=== PATIENT | male | born 1935 | race Caucasian/White ===

== ENCOUNTER 2018-03-27 12:19 | Emergency (ER) | payer OTHER ==
[~2018-03-27] VITALS: Ht 188 cm; Wt 104.3 kg
[~2018-03-27 12:19] MED LIST: ATOR10 PO; CENTRUM COMPLE1 EACH PO; CEPH500 PO; Coumadin5 MG PO; DILT60ER PO; DOCU100 PO; Keflex500 MG PO; LEVSOD50 PO; METO50ER PO; OMEP40CA12 PO; OXYB5 PO; POLY500 PO; PRAZ1 PO; PRAZ2 PO; RAMI5 PO; Roxicodone5 MG PO; Zofran Odt4 MG SL
[2018-03-27 13:27] LABS: BASOPHILS ABSOLUTE AUTO 0.05 K/mm3 (0.00-0.23); BASOPHILS PERCENT AUTO 1 % (0-2); EOSINOPHILS ABSOLUTE AUTO 0.04 K/mm3 (0.00-0.68); EOSINOPHILS PERCENT AUTO 1 % (0-6); Hematocrit 44.2 % (37.0-53.0); Hemoglobin 15.2 g/dL (13.5-17.5); IMMATURE GRAN ABSOLUTE AUTO 0.03 K/mm3 (0.00-0.10); IMMATURE GRAN PERCENT AUTO 0 % (0-1); LYMPHOCYTES PERCENT AUTO 20 % (21-46); MONOCYTES ABSOLUTE AUTO 0.56 K/mm3 (0.16-1.47); MONOCYTES PERCENT AUTO 8 % (4-13); Mean Corpuscular HGB 32.6 pg (26.0-34.0); Mean Corpuscular HGB Conc 34.4 g/dL (31.5-36.5); Mean Corpuscular Volume 95 fL (80-100); Mean Platelet Volume 10.4 fL (9.1-12.4); NEUTROPHILS ABSOLUTE AUTO 5.26 K/mm3 (1.96-9.15); NEUTROPHILS PERCENT AUTO 71 % (41-73); Platelet Count 155 K/mm3 (150-400); RDW Coefficient Variation 12.9 % (11.7-14.2); RDW Standard Deviation 44.8 fL (35.1-46.3); Red Blood Cell Count 4.66 M/mm3 (4.30-5.90); White Blood Cell Count 7.44 K/mm3 (4.00-11.30)
[2018-03-27 13:40] LABS: International Normalized Ratio 2.14; Prothrombin Time Results 21.1 Sec (9.7-11.5)
[2018-03-27 13:52] LABS: Alanine Aminotransfer (ALT/SGP 26 U/L (12-78); Albumin, Blood 3.3 g/dL (3.4-5.0); Albumin/Globulin Ratio 0.8 (0.8-1.8); Alk Phos 65 U/L (50-136); Anion Gap 7 mmol/L (6-16); Aspartate Aminotrans (AST/SGOT 20 U/L (12-37); Blood Urea Nitrogen 22 mg/dL (8-24); CO2, Blood 25 mmol/L (21-32); Calcium, Blood 8.7 mg/dL (8.5-10.1); Chloride, Blood 105 mmol/L (98-108); Globulin, Blood 4.3 g/dL (2.2-4.0); Glomerular Filtration Rate >60 (60-); Glucose, Blood 178 mg/dL (70-99); Potassium, Blood 4.3 mmol/L (3.5-5.5); Sodium, Blood 137 mmol/L (136-145); Total Protein, Blood 7.6 g/dL (6.4-8.2)
[2018-03-27 15:21] LABS: Source, Urine Clean Catch
[2018-03-27 15:24] LABS: Appearance, Urine Clear (Clear); Bilirubin, Urine Neg (Neg); Blood, Urine 1+ (Neg); Color, Urine Yellow (P-Yellow); Glucose Qualitative, Urine Neg (Neg); Ketones, Urine Neg (Neg); Leukocyte Esterase, Urine 1+ (Neg); Nitrite, Urine Neg (Neg); Protein, Urine Neg (Neg); Specific Gravity, Urine 1.015 (1.003-1.022); Urobilinogen, Urine NORM (Normal)
[2018-03-27 15:32] LABS: Bacteria Not Seen /hpf; Squamous Epithelial Cells Not Seen /hpf (Few)
== END 2018-03-27 17:33 | disposition home or self-care (01) ==
LOC: ER 12:19
PROVIDERS: Physician Assistant
DX: R51 Headache (principal); M50.321 Other cervical disc degeneration at C4-C5 level; M50.322 Other cervical disc degeneration at C5-C6 level; D68.9 Coagulation defect, unspecified; Z79.899 Other long term (current) drug therapy; Z79.01 Long term (current) use of anticoagulants; I10 Essential (primary) hypertension
CPT/HCPCS: 36415; 70450; 72040; 80053; 81001; 85025; 85610; 85730; 87086; 93005; 93010; 96361; 96374; 96375; 99285-25; J1885; J3010; J7030

== ENCOUNTER 2018-08-19 06:57 | Observation (INO) | payer OTHER ==
[~2018-08-19] VITALS: Ht 188 cm; Wt 104.4 kg
[~2018-08-19 06:57] MED LIST changes: -OMEP40CA12 PO; +OMEPRAZOLE MAGN20 MG PO; -PRAZ1 PO
[2018-08-19 10:44] LABS: BASOPHILS ABSOLUTE AUTO 0.04 K/mm3 (0.00-0.23); BASOPHILS PERCENT AUTO 0 % (0-2); EOSINOPHILS ABSOLUTE AUTO 0.04 K/mm3 (0.00-0.68); EOSINOPHILS PERCENT AUTO 0 % (0-6); Hematocrit 43.1 % (37.0-53.0); Hemoglobin 14.5 g/dL (13.5-17.5); IMMATURE GRAN ABSOLUTE AUTO 0.03 K/mm3 (0.00-0.10); IMMATURE GRAN PERCENT AUTO 0 % (0-1); LYMPHOCYTES ABSOLUTE AUTO 2.18 K/mm3 (0.84-5.20); LYMPHOCYTES PERCENT AUTO 17 % (21-46); MONOCYTES PERCENT AUTO 6 % (4-13); Mean Corpuscular HGB 32.8 pg (26.0-34.0); Mean Corpuscular HGB Conc 33.6 g/dL (31.5-36.5); Mean Corpuscular Volume 98 fL (80-100); Mean Platelet Volume 9.9 fL (9.1-12.4); NEUTROPHILS PERCENT AUTO 76 % (41-73); Platelet Count 145 K/mm3 (150-400); RDW Standard Deviation 46.3 fL (35.1-46.3); Red Blood Cell Count 4.42 M/mm3 (4.30-5.90); White Blood Cell Count 12.99 K/mm3 (4.00-11.30)
[2018-08-19 11:03] LABS: Alanine Aminotransfer (ALT/SGP 19 U/L (12-78); Albumin, Blood 3.1 g/dL (3.4-5.0); Albumin/Globulin Ratio 0.8 (0.8-1.8); Alk Phos 63 U/L (50-136); Anion Gap 6 mmol/L (6-16); Aspartate Aminotrans (AST/SGOT 21 U/L (12-37); Bilirubin, Total 0.7 mg/dL (0.1-1.0); Blood Urea Nitrogen 18 mg/dL (8-24); Bun/Creatinine Ratio 17.1 (12.0-20.0); CO2, Blood 25 mmol/L (21-32); Calcium, Blood 8.1 mg/dL (8.5-10.1); Chloride, Blood 109 mmol/L (98-108); Creatinine, Blood 1.05 mg/dL (0.60-1.20); Globulin, Blood 3.9 g/dL (2.2-4.0); Glomerular Filtration Rate >60 (60-); Glucose, Blood 149 mg/dL (70-99); Potassium, Blood 4.4 mmol/L (3.5-5.5); Sodium, Blood 140 mmol/L (136-145)
[2018-08-19] MEDS ORDERED: METF500C PO (15:17)
[2018-08-19] MEDS ORDERED: RAMI5 PO (15:18)
--- NOTE | 2018-08-19 15:34 | NUR ---
ADMIT NOTE RECEIVED REPORT FROM PENNIE STARKS RN IN ED. PT TO ROOM VIA GURNEY AT 1355, 4 PERSON TRANSFER ASSIST WITH SLIDER SHEET. PT ORIEINTED TO ROOM AND CALL LIGHT. DAUGHTER AT BEDSIDE AT 1530, REPORTS THAT THE PT ATTEMPTED TO GET OUT OF BED WITH HIS CANE THIS MORNING AND FELL TO THE FLOOR. DAUGHTER STATES PT AMBULATES AT BASELINE WITH A CANE AND IS ABLE TO COMPLETE HYGENINE ADLS ON HIS OWN. PT EDUCATED ON HIGH FALL RISK AND NOTIFIED OF BED ALARM PLACEMENT. PT ALERT AND ORIENTED TO SELF, FAMILY AND SURROUNDINGS. PT REPORTS PAIN, "OK" AT THIS TIME. PT BREATHING EVEN AND UNLABORED, >90% ON RA AND LS CLEAR. RIGHT LEG PAINFUL WITH MOVEMENT, PERIPHERAL PULSE WEAK BUT NOTED. PT HAS A HX OF CVA WITH RIGHT SIDE GROSS MOVEMENT, SLIGHT IN ARM, DAUGHTER REPORTS THAT THE PT DRAGS RIGHT FOOT WHILE WALKING. ELEVATED BP, 173/81 NOTED. WILL CONTINUE TO MONITOR.
[2018-08-19 17:05] LABS: International Normalized Ratio 2.88; Prothrombin Time Results 27.7 Sec (9.7-11.5)
--- NOTE | 2018-08-19 19:27 | NUR ---
DR PETIT AT BEDSIDE APPLYING SPLINT TO R LEG. DIANNA RANDHAWA AND THIS RN ASSISTED WITH TRACTION AND APPLICATION. PT TOLERATED WELL.
--- NOTE | 2018-08-19 20:14 | NUR ---
SHIFT SUMMARY PT A&O TO SELF, EVENT, FAMILY AND SURROUNDINGS. PT CALM AND COOPERATIVE WITH CARE. PT RESTING IN BED, ASSIST WITH TURNING AND CHANGING. PT REPORTS PAIN IN RIGHT LEG, MEDICATED PER EMAR. RIGHT THIGH IS WARM AND FIRM TO TOUCH. R FOOT PULSE PALPABLE BUT WEAK. PT DENIES SOB, BREATHING EVEN AND UNLABORED. PT DENIES N/V, APPEARS TO HAVE GOOD APPETITE WITH DINNER. PROVIDER CONSULT CALLED IN TO DR PETIT, DR PETIT AT BEDSIDE AT SHIFT CHANGE, THIS RN AND EDIS KING ASSIST WITH SPLINTING AND HOLD TRACTION WITH DR PETIT. BP ELEVATED, HYDRALAZINE ADMINISTED. OTHER VSS. NO OTHER ACUTE CHAGNES NOTED DURING SHIFT. REPORT GIVEN TO ONCOMING RN.
[2018-08-20 05:09] LABS: Hematocrit 39.2 % (37.0-53.0); Hemoglobin 13.2 g/dL (13.5-17.5); Mean Corpuscular HGB 32.2 pg (26.0-34.0); Mean Corpuscular HGB Conc 33.7 g/dL (31.5-36.5); Mean Corpuscular Volume 96 fL (80-100); Mean Platelet Volume 10.5 fL (9.1-12.4); Platelet Count 148 K/mm3 (150-400); RDW Coefficient Variation 13.1 % (11.7-14.2); RDW Standard Deviation 46.5 fL (35.1-46.3); White Blood Cell Count 12.67 K/mm3 (4.00-11.30)
[2018-08-20 05:21] LABS: International Normalized Ratio 2.33
[2018-08-20 05:36] LABS: Prothrombin Time Results 22.9 Sec (9.7-11.5)
[2018-08-20 06:20] LABS: Anion Gap 8 mmol/L (6-16); Blood Urea Nitrogen 16 mg/dL (8-24); CO2, Blood 23 mmol/L (21-32); Chloride, Blood 108 mmol/L (98-108); Glucose, Blood 178 mg/dL (70-99); Sodium, Blood 139 mmol/L (136-145)
--- NOTE | 2018-08-20 06:35 | NUR ---
SHIFT SUMMARY: PT R LEG IN SPLINT PLACED BY DR PETIT WITH ASSISTANCE FROM THIS RN AND EDIS BUSTAMANTE. PEDAL PULSES PALPABLE TO RLE. PT TREATED FOR PAIN 2X WITH 1MG DILAUDID, MOSTLY BEFORE MOVEMENT. PT A&O X 1, SELF ONLY. PLEASANTLY CONFUSED, UNABLE TO ANSWER MOST Q'S AND USUALLY JUST GIGGLES WHEN COVERSATING. R SIDE FLACCID, VERY LIMITED MOVEMENT. NS RUNNING @ 60 ML/HR. NPO SINCE MIDNIGHT FOR IMPENDING PROCEDURE c DR PETIT. NO OTHER ACUTE CHANGES TO REPORT. WILL CONT TO PROVIDE CARE UNTIL PRESUMED BY ONCOMING RN.
[2018-08-20 06:53] LABS: Bun/Creatinine Ratio 17.6 (12.0-20.0); Creatinine, Blood 0.91 mg/dL (0.60-1.20); Glomerular Filtration Rate >60 (60-)
[2018-08-20 09:15] LABS: Source, Urine Clean Catch
[2018-08-20 09:19] LABS: Bilirubin, Urine Neg (Neg); Blood, Urine 3+ (Neg); Glucose Qualitative, Urine 2+ (Neg); Ketones, Urine 1+ (Neg); Leukocyte Esterase, Urine 3+ (Neg); Nitrite, Urine Neg (Neg); Protein, Urine 2+ (Neg); Specific Gravity, Urine 1.025 (1.003-1.022); Urobilinogen, Urine 1+ (Normal)
[2018-08-20 10:08] LABS: Appearance, Urine Hazy (Clear); Color, Urine Yellow (P-Yellow)
[2018-08-20 10:25] LABS: White Blood Cells, Urine TNTC /hpf (0-5)
[2018-08-20 10:27] LABS: Squamous Epithelial Cells Few /hpf (Few)
[2018-08-20 10:34] LABS: Bacteria Few /hpf
--- NOTE | 2018-08-20 13:34 | NUR ---
Pt consented to nursing program director Odilia Light to assess pt 08/21/18. Pt daughter also aware.
--- NOTE | 2018-08-20 15:54 | NUR ---
Patient was lying on his bed and alert when I entered the room. I introduced myself to patient and patient's daughter, Anette and they welcomed me. Pat explained that patient had a stroke at age 43 and has been a fighter ever since, she also explained that he recently received some pain medication and that is why he is extra happy at the moment. I listened to a brief family history, I reinforced helpful attitudes and practices, explored their belief system and provided prayer. Patient and daughter responded well to all interventions and thanked me for the visit.
--- NOTE | 2018-08-21 07:49 | NUR ---
NOC SHIFT SUMMARY THIS PT HAS RAMIRO PLEASANT AND COOPERATIVE WITH CARE THIS NIGHT. HE HAS HAD NO COMPLAINTS OTHER THAN LEG PAIN DURING REPOSITIONING. HAS BEEN REPOSITIONED FREQUENTLY TO PREVENT SORES. DID SHOW A LOW GRADE FEVER DURING THE NIGHT FOR WHICH TYLENOL WAS GIVEN. REPORTED THIS TO ONCOMING NURSE AT [facility]. NO ACUTE CHANGES SEEN.
[2018-08-21 09:42] LABS: BASOPHILS ABSOLUTE AUTO 0.07 K/mm3 (0.00-0.23); BASOPHILS PERCENT AUTO 1 % (0-2); EOSINOPHILS ABSOLUTE AUTO 0.19 K/mm3 (0.00-0.68); EOSINOPHILS PERCENT AUTO 2 % (0-6); Hematocrit 38.3 % (37.0-53.0); Hemoglobin 12.4 g/dL (13.5-17.5); IMMATURE GRAN ABSOLUTE AUTO 0.04 K/mm3 (0.00-0.10); IMMATURE GRAN PERCENT AUTO 0 % (0-1); LYMPHOCYTES ABSOLUTE AUTO 2.35 K/mm3 (0.84-5.20); LYMPHOCYTES PERCENT AUTO 19 % (21-46); MONOCYTES ABSOLUTE AUTO 1.21 K/mm3 (0.16-1.47); MONOCYTES PERCENT AUTO 10 % (4-13); Mean Corpuscular HGB Conc 32.4 g/dL (31.5-36.5); Mean Platelet Volume 10.3 fL (9.1-12.4); NEUTROPHILS ABSOLUTE AUTO 8.85 K/mm3 (1.96-9.15); NEUTROPHILS PERCENT AUTO 70 % (41-73); Platelet Count 142 K/mm3 (150-400); RDW Coefficient Variation 13.3 % (11.7-14.2); RDW Standard Deviation 48.1 fL (35.1-46.3); Red Blood Cell Count 3.88 M/mm3 (4.30-5.90); White Blood Cell Count 12.71 K/mm3 (4.00-11.30)
[2018-08-21 09:43] LABS: Mean Corpuscular Volume 99 fL (80-100)
[2018-08-21 09:57] LABS: Anion Gap 9 mmol/L (6-16); Blood Urea Nitrogen 19 mg/dL (8-24); Bun/Creatinine Ratio 19.7 (12.0-20.0); CO2, Blood 21 mmol/L (21-32); Calcium, Blood 7.6 mg/dL (8.5-10.1); Chloride, Blood 108 mmol/L (98-108); Creatinine, Blood 0.97 mg/dL (0.60-1.20); Glomerular Filtration Rate >60 (60-); Glucose, Blood 225 mg/dL (70-99); Potassium, Blood 4.2 mmol/L (3.5-5.5); Sodium, Blood 138 mmol/L (136-145)
[2018-08-21 10:08] LABS: International Normalized Ratio 1.58; Prothrombin Time Results 16.1 Sec (9.7-11.5)
--- NOTE | 2018-08-21 13:32 | NUR ---
Clint gave permission to this director community health nursing to help assist the nursing staff with care on 08/21/2018 from [phone].
--- NOTE | 2018-08-21 18:42 | NUR ---
SHIFT SUMMARY NO ACUTE CHANGES. PATIENT PLEASANT AND COOPERATIVE. PATIENT EVALUATED BY PT AND OT TODAY. DISCHARGE TO REHAB FACILTY IS BEING PURSUED BY CARE MANAGEMENT. PATIENT AND PATIENT'S DAUGHTER/POA IS AWARE. SURGICAL REPAIR OF R FEMUR FX IS NOT GOING TO BE PURSUED AT THIS TIME. BONE WILL BE ALLOWED TO HEAL NATURALLY. CALL LIGHT IN REACH, WILL CONTINUE MONITOR.
--- NOTE | 2018-08-22 04:05 | NUR ---
SHIFT SUMMARY PATIENT HAD NO ACUTE CHANGES OBSERVED THIS SHIFT. AXO WITH CONFUSION. GARBLED SPEECH. PIV REMAINS INTACT. NS INFUSING AT 60 mL/HR. LEARNING SUPPORT ASSISTANT REPORTS NSR 85. CBG 192. PAIN WITH RIGHT LEG MOVEMENT. DENIES SOB AND N/V. VSS/AFEBRILE. USES URINAL AT BEDSIDE. CALL LIGHT IN REACH. BED IN LOWEST POSITION. WILL CONTINUE TO MONITOR UNTIL DAY SHIFT NURSE ASSUMES CARE.
[2018-08-22 04:57] LABS: Hematocrit 34.7 % (37.0-53.0); Hemoglobin 11.6 g/dL (13.5-17.5); Mean Corpuscular HGB 31.7 pg (26.0-34.0); Mean Corpuscular HGB Conc 33.4 g/dL (31.5-36.5); Mean Platelet Volume 10.6 fL (9.1-12.4); Platelet Count 121 K/mm3 (150-400); RDW Standard Deviation 44.9 fL (35.1-46.3); Red Blood Cell Count 3.66 M/mm3 (4.30-5.90); White Blood Cell Count 11.59 K/mm3 (4.00-11.30)
[2018-08-22 04:58] LABS: Mean Corpuscular Volume 95 fL (80-100)
[2018-08-22 05:09] LABS: International Normalized Ratio 1.26; Prothrombin Time Results 13.1 Sec (9.7-11.5)
[2018-08-22 05:19] LABS: Anion Gap 8 mmol/L (6-16); Blood Urea Nitrogen 18 mg/dL (8-24); Bun/Creatinine Ratio 19.7 (12.0-20.0); CO2, Blood 23 mmol/L (21-32); Calcium, Blood 7.9 mg/dL (8.5-10.1); Chloride, Blood 109 mmol/L (98-108); Creatinine, Blood 0.91 mg/dL (0.60-1.20); Glomerular Filtration Rate >60 (60-); Glucose, Blood 162 mg/dL (70-99); Potassium, Blood 4.1 mmol/L (3.5-5.5); Sodium, Blood 140 mmol/L (136-145)
--- NOTE | 2018-08-22 16:07 | NUR ---
FOLLOW UP APPOINTMENT DR. BABCOCK'S OFFICE CALLED WITH A FOLLOW-UP APPOINTMENT DATE OF 09-05-18 AT 1:30PM. NOTE LEFT IN PT CHART & PLACED IN DC PLAN.
--- NOTE | 2018-08-22 16:51 | NUR ---
SHIFT SUMMARY PT TOLERATED PT & OT TODAY. OT WAS ABLE TO GET PT TO SIDE OF BED AND BACK. PT STATED PAIN ONLY WHEN MOVING. ONCE SITTING HE WAS FINE. PT WAS MEDICATED BOTH TIMES WITH 25 FENTANYL IV BEFORE THERAPY. PT PLANNED TO BE DC'D TOMORROW TO SNF. PT CHANGES IN ASSESSMENT AT THIS TIME. PT IS SLIGHTLY FEBRILE THIS AFTERNOON WITH A TEMP OF 100.3. 650 TYLENOL GIVEN. FEVER REDUCED 99.7. TOP BLANKET REMOVED & SHEET LEFT IN PLACE TO AIDE IN REDUCTION OF FEVER. OTHER VITALS STABLE AT THIS TIME. WILL CONTINUE TO MONITOR UNTIL TURNOVER IS COMPLETE.
--- NOTE | 2018-08-23 04:50 | NUR ---
shift summary PT TURNED Q 2 HOURS, INCONTINENT OF URINE X1 DURING THE NIGHT. HAD SMALL LIQUID STOOL. PT DENIED ANY PAIN MEDICATIONS DURING THE NIGHT. SLEPT WELL, NO ACUTE CHANGES NOTED. WILL CONTINUE TO MONITOR.
[2018-08-23 05:34] LABS: International Normalized Ratio 1.16; Prothrombin Time Results 12.1 Sec (9.7-11.5)
--- NOTE | 2018-08-23 15:24 | NUR ---
DR. DIAZ OFFICE CALLED DR. LLANES REQUESTED THAT DR. VAIL RE-EVALUATE THE PT DUE TO UNRESOLVED PAIN. PT UNABLE TO WORK EFECTIVELY WITH THERAPY EVEN WITH PREMEDICATION. DR. LLANES'S CELL NUMBER GIVEN TO THE OFFICE. OFFICE STAFF STATED THAT SHE WOULD SEND PT INFO TO DR. VAIL. WILL CONTINUE TO MONITOR.
--- NOTE | 2018-08-23 17:50 | NUR ---
SHIFT SUMMARY PT CONTINUES TO HAVE UNCONTROLLED PAIN WHEN MOVING HIS LEG. DR. VAIL CAME IN TO SEE PT AND EVALUATED PTS LEG. STATED THAT X-RAYS LOOK GOOD AND READJUSTED THE LEG IMMMOBILIZER. PT STATES HE IS NOT IN PAIN WHEN ASKED THROUGHOUT THE SHIFT, HOWEVER SHOWS MORE PHYSICAL SIGNS OF PAIN THE DAY GOES ON. PT AGREED TO TAKE PAIN MEDS THIS AFTERNOON. PT CONTINUES TO HAVE A LOW GRADE FEVER AT 99.2. OTHER VITALS STABLE. DAUGHTER NOTIFIED OF DELAYED DC. WILL CONTINUE TO MONITOR UNTIL TURNOVER IS COMPLETE.
[2018-08-24 05:10] LABS: BASOPHILS ABSOLUTE AUTO 0.05 K/mm3 (0.00-0.23); BASOPHILS PERCENT AUTO 0 % (0-2); EOSINOPHILS ABSOLUTE AUTO 0.56 K/mm3 (0.00-0.68); EOSINOPHILS PERCENT AUTO 5 % (0-6); Hematocrit 34.9 % (37.0-53.0); Hemoglobin 11.5 g/dL (13.5-17.5); IMMATURE GRAN ABSOLUTE AUTO 0.06 K/mm3 (0.00-0.10); IMMATURE GRAN PERCENT AUTO 1 % (0-1); LYMPHOCYTES ABSOLUTE AUTO 1.44 K/mm3 (0.84-5.20); LYMPHOCYTES PERCENT AUTO 13 % (21-46); MONOCYTES ABSOLUTE AUTO 0.96 K/mm3 (0.16-1.47); MONOCYTES PERCENT AUTO 9 % (4-13); Mean Corpuscular HGB 32.1 pg (26.0-34.0); Mean Platelet Volume 10.1 fL (9.1-12.4); NEUTROPHILS ABSOLUTE AUTO 8.17 K/mm3 (1.96-9.15); NEUTROPHILS PERCENT AUTO 73 % (41-73); Platelet Count 164 K/mm3 (150-400); RDW Coefficient Variation 13.2 % (11.7-14.2); RDW Standard Deviation 46.6 fL (35.1-46.3); Red Blood Cell Count 3.58 M/mm3 (4.30-5.90); White Blood Cell Count 11.24 K/mm3 (4.00-11.30)
--- NOTE | 2018-08-24 05:11 | NUR ---
SHIFT SUMMARY PT SLEPT WELL T/O THE NIGHT. PT MEDICATED FOR PAIN T/O NIGHT. NO ACUTE CHANGES NOTED, WILL CONTINUE TO MONITOR
[2018-08-24 05:12] LABS: Mean Corpuscular Volume 98 fL (80-100)
[2018-08-24 05:25] LABS: International Normalized Ratio 1.19; Prothrombin Time Results 12.4 Sec (9.7-11.5)
[2018-08-24 05:40] LABS: Albumin, Blood 2.4 g/dL (3.4-5.0); Anion Gap 8 mmol/L (6-16); Blood Urea Nitrogen 31 mg/dL (8-24); Bun/Creatinine Ratio 24.6 (12.0-20.0); CO2, Blood 25 mmol/L (21-32); Calcium, Blood 8.2 mg/dL (8.5-10.1); Chloride, Blood 105 mmol/L (98-108); Creatinine, Blood 1.26 mg/dL (0.60-1.20); Glomerular Filtration Rate 58 (60-); Glucose, Blood 166 mg/dL (70-99); Phosphorus, Blood 4.6 mg/dL (2.5-4.9); Potassium, Blood 4.1 mmol/L (3.5-5.5); Sodium, Blood 138 mmol/L (136-145)
--- NOTE | 2018-08-24 11:15 | NUR ---
PROM BRACE PT & OT BROUGHT UP THE CONCERNT THAT THE PT KNEE MOVED WHEN THE R LEG BRACE WAS IN PLACE DUE TO THE PTS HEIGHT. DR. VAIL STATED YESTERDAY THAT HE DID NOT WAS KNEE MOVEMENT, BUT WANTED THE BRACE UP ON THE PTS LEG. DR. VAIL CALLED FOR VERIFICATION OF THIS. ORDERED A PROM BRACE TO BE LOCKED IN EXTENTION. CHESTER GUZMAN AT [facility] CALLED & STATED THAT HE SPOKE WITH DR. VAIL AND WILL BE AT [facility] TO FIT THE PT TODAY
[2018-08-24] MEDS ORDERED: HYDR1TAB94 PO ×2 (12:01→13:23)
[2018-08-24] MEDS ORDERED: Acetaminophen325 M1 PO (12:01)
--- NOTE | 2018-08-24 13:15 | NUR ---
NEW BRACE PLACED CHESTER FROM [facility] CAME AND FITTED THE PT FOR HIS BRACE.
--- NOTE | 2018-08-24 14:32 | NUR ---
PT DISCHARGED PT DISCHARGED AT 1430. PT IN STABLE CONDITION WITH VSS. REPORT CALLED TO [facility] AND NUMBER GIVEN TO CALL BACK IF IN FURTHER QUESTIONS ARE NEEDED TO BE ANSWERED. PT TRANSPORTED BY [facility] TO . FAMILY AWARE OF DISCAHRGE. NEW BRACE PLACED & INTACT.
== END 2018-08-24 14:38 ==
LOC: ER 06:57 → MEDS 06:58 → ER 13:01 → MEDS 13:01 → ENPENDDIS 08-24 12:04 → MEDS 08-24 14:38
PROVIDERS: Family Medicine; Physician Assistant; ADMIT Internal Medicine
DX: S72.451A Displaced supracondylar fracture without intracondylar extension of lower end of right femur, initial encounter for closed fracture (principal); I48.2 Chronic atrial fibrillation; I10 Essential (primary) hypertension; E11.9 Type 2 diabetes mellitus without complications; N40.0 Benign prostatic hyperplasia without lower urinary tract symptoms; E03.9 Hypothyroidism, unspecified; E78.5 Hyperlipidemia, unspecified; K21.9 Gastro-esophageal reflux disease without esophagitis; F32.9 Major depressive disorder, single episode, unspecified; Z23 Encounter for immunization; Z86.73 Personal history of transient ischemic attack (TIA), and cerebral infarction without residual deficits; Z87.442 Personal history of urinary calculi; Z79.899 Other long term (current) drug therapy; Z79.01 Long term (current) use of anticoagulants; Z79.84 Long term (current) use of oral hypoglycemic drugs; W18.30XA Fall on same level, unspecified, initial encounter
CPT/HCPCS: 36415; 71045; 73502; 73552; 73700; 76377; 80048; 80053; 80069; 81001; 82947; 85025; 85027; 85610; 85730; 87077; 87086; 87186; 90686; 96361; 96365; 96366; 96374; 96375; 96376; 97110; 97161; 97165; 97530; 97535; 99285-25; G0008; G0378; J0360; J0696; J1170; J1885; J3010; J7030

== ENCOUNTER 2019-08-11 15:01 | Inpatient (IN) | payer OTHER ==
[~2019-08-11] VITALS: Ht 175.3 cm; Wt 90.7 kg
[~2019-08-11 15:01] MED LIST changes: +Acetaminophen325 M1 PO; +HYDR1TAB94 PO; +METF500C PO
[2019-08-11 15:26] LABS: BASOPHILS ABSOLUTE AUTO 0.04 K/mm3 (0.00-0.23); BASOPHILS PERCENT AUTO 0 % (0-2); EOSINOPHILS ABSOLUTE AUTO 0.14 K/mm3 (0.00-0.68); EOSINOPHILS PERCENT AUTO 1 % (0-6); Hematocrit 39.8 % (37.0-53.0); Hemoglobin 13.4 g/dL (13.5-17.5); IMMATURE GRAN ABSOLUTE AUTO 0.12 K/mm3 (0.00-0.10); IMMATURE GRAN PERCENT AUTO 1 % (0-1); LYMPHOCYTES ABSOLUTE AUTO 2.33 K/mm3 (0.84-5.20); LYMPHOCYTES PERCENT AUTO 16 % (21-46); MONOCYTES ABSOLUTE AUTO 0.94 K/mm3 (0.16-1.47); MONOCYTES PERCENT AUTO 7 % (4-13); Mean Corpuscular HGB 32.4 pg (26.0-34.0); Mean Corpuscular HGB Conc 33.7 g/dL (31.5-36.5); Mean Corpuscular Volume 96 fL (80-100); Mean Platelet Volume 10.3 fL (9.1-12.4); NEUTROPHILS ABSOLUTE AUTO 10.79 K/mm3 (1.96-9.15); NEUTROPHILS PERCENT AUTO 75 % (41-73); Platelet Count 171 K/mm3 (150-400); RDW Coefficient Variation 13.5 % (11.7-14.2); RDW Standard Deviation 48.1 fL (35.1-46.3); Red Blood Cell Count 4.14 M/mm3 (4.30-5.90); White Blood Cell Count 14.36 K/mm3 (4.00-11.30)
[2019-08-11] MEDS ORDERED: Ramipril10 MG PO (15:37)
[2019-08-11] MEDS ORDERED: GLIP2.5ER PO (15:38)
[2019-08-11 15:40] LABS: International Normalized Ratio 2.15
[2019-08-11 15:44] LABS: Alanine Aminotransfer (ALT/SGP 27 U/L (12-78); Albumin, Blood 2.4 g/dL (3.4-5.0); Albumin/Globulin Ratio 0.5 (0.8-1.8); Alk Phos 58 U/L (50-136); Anion Gap 8 mmol/L (6-16); Aspartate Aminotrans (AST/SGOT 24 U/L (12-37); Bilirubin, Total 1.3 mg/dL (0.1-1.0); Blood Urea Nitrogen 21 mg/dL (8-24); Bun/Creatinine Ratio 21.5 (12.0-20.0); CO2, Blood 23 mmol/L (21-32); Calcium, Blood 8.3 mg/dL (8.5-10.1); Chloride, Blood 107 mmol/L (98-108); Creatinine, Blood 0.98 mg/dL (0.60-1.20); Ethanol (Alcohol), Blood, Med <3 mg/dL; Globulin, Blood 4.5 g/dL (2.2-4.0); Glomerular Filtration Rate >60 (60-); Glucose, Blood 111 mg/dL (70-99); Sodium, Blood 138 mmol/L (136-145); Total Protein, Blood 6.9 g/dL (6.4-8.2)
[2019-08-11 15:57] LABS: Source, Urine Clean Catch
[2019-08-11 16:00] LABS: Bilirubin, Urine Neg (Neg); Blood, Urine 3+ (Neg); Glucose Qualitative, Urine Neg (Neg); Ketones, Urine Neg (Neg); Leukocyte Esterase, Urine 3+ (Neg); Nitrite, Urine Neg (Neg); Protein, Urine 2+ (Neg); Specific Gravity, Urine 1.015 (1.003-1.022); Urobilinogen, Urine 2+ (Normal)
[2019-08-11 16:02] LABS: Influenza A Negative (NEGATIVE); Influenza B Negative (NEGATIVE)
[2019-08-11 16:17] LABS: U Amphetamine Screen Not Detected; U Barbituate Screen Not Detected; U Benzodiazapine Screen Not Detected; U Buprenorphine Screen Not Detected; U Cannabinoids Screen Not Detected; U Cocaine Screen Not Detected; U Methadone Screen Not Detected; U Methamphetamine Screen Not Detected; U Opiates Screen Not Detected; U Oxycodone Screen Not Detected; U Phencyclidine Screen Not Detected; U Propoxyphene Screen Not Detected
[2019-08-11 16:19] LABS: Appearance, Urine Hazy (Clear); Color, Urine Yellow (P-Yellow)
[2019-08-11 16:21] LABS: Bacteria Mod /hpf; Squamous Epithelial Cells Rare /hpf (Few)
[2019-08-11 16:22] LABS: Mucus Light (0-Heavy)
--- NOTE | 2019-08-11 18:31 | NUR ---
RECIEVED TELEPHONE REPORT- PT TO ADMIT TO MEDICAL FLOOR FOR SEPSIS, UTI, HYPOKALEMIA AND AFIB WITH RVR. PER REPORT PT DID NOT RECIEVE ANY OF HIS HOME MEDICATIONS THIS MORNING. FAMILY BROUGHT PT MEDICATION BOTTLES IN AND MEDS WERE RECONCILED IN THE ER USEING THE PILL BOTTLES. PT HAS RECIEVED 1L OF FLUIDS THEN SEPSIS PROTOCOL WAS DC'D D/T ELEVATED BNP. PT IS DIABETIC AC & HS BLOOD SUGARS ORDERED. PT CURRENTLY MAGALY AFIB WITH RVR AND HAS RECIEVED 2 DOSES OF IV METOPROLOL THAT HAV LOWERED THE PULSE FOR A FEW MINUTES THEN IT RETURNS TO THE ORRIGIONAL RATE. PT HAS A HX OF CVA WITH RIGHT SIDED WEAKNESS AND SLURRED SPEACH. PT HAS FAMILY AT THE BEDSIDE AND WILL BE COMING UP SHORTLY. PT WILL BE ON TELE.
--- NOTE | 2019-08-12 01:17 | NUR ---
RESP AND GI PANEL COLLECTED AT THIS TIME. PT TOLLERATED NASAL SWAB WELL.
[2019-08-12 02:30] LABS: Adenovirus Not Detected (NOT DETECT); Bordetella pertussis Not Detected (NOT DETECT); Chlamydophila pneumoniae Not Detected (NOT DETECT); Coronavirus 229E Not Detected (NOT DETECT); Coronavirus HKU1 Not Detected (NOT DETECT); Coronavirus NL63 Not Detected (NOT DETECT); Coronavirus OC43 Not Detected (NOT DETECT); Human Metapneumovirus Not Detected (NOT DETECT); Human Rhinovirus/Enterovirus Not Detected (NOT DETECT); Influenza A Not Detected (NOT DETECT); Influenza A/2009-H1 Not Detected (NOT DETECT); Influenza A/H1 Not Detected (NOT DETECT); Influenza A/H3 Not Detected (NOT DETECT); Influenza B Not Detected (NOT DETECT); Mycoplasma pneumoniae Not Detected (NOT DETECT); Parainfluenza Virus 1 Not Detected (NOT DETECT); Parainfluenza Virus 2 Not Detected (NOT DETECT); Parainfluenza Virus 3 Not Detected (NOT DETECT); Parainfluenza Virus 4 Not Detected (NOT DETECT); Respiratory Syncytial Virus Not Detected (NOT DETECT)
[2019-08-12 02:39] LABS: Adenovirus F 40/41 Not Detected (NOT DETECT); Astrovirus Not Detected (NOT DETECT); Campylobacter Sp Not Detected (NOT DETECT); Cryptosporidium Not Detected (NOT DETECT); Cyclospora Cayetanensis Not Detected (NOT DETECT); E. Coli O157 Not Detected (NOT DETECT); Entamoeba Histolytica Not Detected (NOT DETECT); Enteroaggregative E. coli-EAEC Not Detected (NOT DETECT); Enteropathogenic E. coli-EPEC Not Detected (NOT DETECT); Enterotoxigenic E. coli-ETEC Not Detected (NOT DETECT); Giardia Lamblia Not Detected (NOT DETECT); Norovirus GI/GII Not Detected (NOT DETECT); Plesiomonas Shigelloides Not Detected (NOT DETECT); Rotavirus A Not Detected (NOT DETECT); Salmonella Sp Not Detected (NOT DETECT); Sapovirus Not Detected (NOT DETECT); Shiga Toxin-prod E. coli-STEC Not Detected (NOT DETECT); Shigella/Enteroin E. coli-EIEC Not Detected (NOT DETECT); Vibrio Cholerae Not Detected (NOT DETECT); Vibrio Sp Not Detected (NOT DETECT); Yersinia Enterocolitica Not Detected (NOT DETECT)
--- NOTE | 2019-08-12 04:05 | NUR ---
CARDIOTHORACIC ICU RN SUMMARY PT SLEPT WELL ALL NIGHT. PT HAS RIGHT SIDED WEAKNESS FROM PREVIOUS CVA WELL APHASIA. TAKES MEDS WHOLE ALL AT ONCE WITH WATER WITH NO ISSUES SWALLOWING. PT WOULD ALWAYS LAUGH AND HARD TO UNDERSTAND DUE TO APHASIA. HOWEVER, PT CAN EXPRESS TO STAFF WHEN HE HAS TO VOID. PT HAS HAD A COUPLE LOOSE BM SO FAR TODAY. PT DOES NOT HAVE ANY PAIN OTHER THAN WHEN COUGHING. PT FOUND TO HAVE A QUARTER SIZED BLISTER ON RIGHT HEEL. HEEL PROTECTOR PLACED. PT IS ON ROOM AIR SATTING IN LOW 90'S. VSS, WILL CONTINUE TO MONITOR.
[2019-08-12 05:38] LABS: BASOPHILS ABSOLUTE AUTO 0.06 K/mm3 (0.00-0.23); BASOPHILS PERCENT AUTO 1 % (0-2); EOSINOPHILS ABSOLUTE AUTO 0.14 K/mm3 (0.00-0.68); EOSINOPHILS PERCENT AUTO 1 % (0-6); Hematocrit 36.6 % (37.0-53.0); IMMATURE GRAN ABSOLUTE AUTO 0.13 K/mm3 (0.00-0.10); IMMATURE GRAN PERCENT AUTO 1 % (0-1); LYMPHOCYTES PERCENT AUTO 14 % (21-46); MONOCYTES ABSOLUTE AUTO 0.76 K/mm3 (0.16-1.47); MONOCYTES PERCENT AUTO 7 % (4-13); Mean Corpuscular HGB Conc 32.8 g/dL (31.5-36.5); Mean Corpuscular Volume 98 fL (80-100); Mean Platelet Volume 10.2 fL (9.1-12.4); NEUTROPHILS ABSOLUTE AUTO 8.94 K/mm3 (1.96-9.15); NEUTROPHILS PERCENT AUTO 77 % (41-73); Platelet Count 163 K/mm3 (150-400); RDW Coefficient Variation 13.6 % (11.7-14.2); Red Blood Cell Count 3.75 M/mm3 (4.30-5.90); White Blood Cell Count 11.63 K/mm3 (4.00-11.30)
[2019-08-12 05:50] LABS: International Normalized Ratio 2.57; Prothrombin Time Results 26.1 Sec (9.7-11.5)
[2019-08-12 06:07] LABS: Magnesium, Blood 1.9 mg/dL (1.6-2.4)
[2019-08-12 06:09] LABS: Anion Gap 7 mmol/L (6-16); Blood Urea Nitrogen 16 mg/dL (8-24); Bun/Creatinine Ratio 18.7 (12.0-20.0); CO2, Blood 20 mmol/L (21-32); Chloride, Blood 113 mmol/L (98-108); Creatinine, Blood 0.86 mg/dL (0.60-1.20); Glomerular Filtration Rate >60 (60-); Glucose, Blood 94 mg/dL (70-99); Potassium, Blood 3.7 mmol/L (3.5-5.5); Sodium, Blood 140 mmol/L (136-145)
--- NOTE | 2019-08-12 15:13 | NUR ---
I, Anne Ron a [facility] acute care nursing assistant, was given permission by Jarrod Lopes on 08/12/2019 to care for Jarrod Lopes on 08/13/2019.
--- NOTE | 2019-08-12 16:59 | NUR ---
SHIFT SUMMARY- PT AWAKE MOST OF THE DAY, UP TO CHAIR WITH 2 ASSIST PIVOT TRANSFER. PT DIFFICULT TO UNDERSTAND DUE TO EXPRESSIVE APHASIA FROM HX OF CVA, PT CAN ANSWER YES/NO QUESTIONS. RIGHT SIDE DEFECIT. LS CLEAR, ON RA. TELE AFIB AT 109. 2+ RLE EDEMA AND 1+ LLE EDEMA NOTED. PT DENIES ANY COMPLAINTS T/O THE DAY. CASE MANAGEMENT WORKING WITH PT AND DAUGHTER FOR POSS PLACEMENT. NO OTHER ACUTE CHANGES THIS SHIFT.
--- NOTE | 2019-08-13 04:00 | NUR ---
SHIFT SUMMARY ADMITTED FOR AFIB W/RVR/SEPSIS/UTI/PNEUMONIA. FULL CODE. PLAN IS FOR POSSIBLE DC HOME W/CAREGIVER HELP, THEN HOPEFUL FOR EVENTUAL OUTPATIENT PLACEMENT AT [facility]. SOFT-BITE SIZE/CARDIAC DIET, TELEMETRY: NSR @ 67 BPM, ACHS, RA, SCD'S, PT TAKES COUMADIN, GARBLED SPEECH. LIVES W/DAUGHTER. HX: AFIB, CVA (RT SIDE DEFICITS), DVT, PE, HTN, DM2, HYPOTHYROID, BPH, GERD, DEPRESSION. WHEELCHAIR AT BASELINE, HERE IS A 2 PERSON MAX PIVOT ASSIST.
[2019-08-13 06:00] LABS: International Normalized Ratio 2.78; Prothrombin Time Results 28.1 Sec (9.7-11.5)
--- NOTE | 2019-08-13 15:24 | NUR ---
Pt gave me permission today 08/13/19 to provide care for him on 08/14/19.
--- NOTE | 2019-08-13 18:23 | NUR ---
Shift Summary A/O, pleasant with care. Pt is 2P Stand pivot transfer with gait. Pt has baseline garbled speech but does seem to comprehend what is going on. No c/o pain, no concerns. Uneventful shift.
--- NOTE | 2019-08-13 21:04 | NUR ---
2041 PT LYING IN BED, DENIES ANY DISCOMFORT AT THIS TIME. VISIBLE SOB, AUDIBLE WHEEZES. ON RA AT 93%. SCD'S ON. A FEW SCATTERED SCABS AND BRUISES ON UE'S. EDEMA IN RLE 1+. OCCASIONAL INCONTINANCY BUT USES URINAL INDEPENDANTLY. URINE IS CLEAR AND YELLOW. PT HAS HX OF CVA, RUE AND LE ARE FLACCID, WEAKNESS IN L UE/LE. PT HAS GARBLED SPEECH BUT APPEARS TO BE AAO X 4. NO OTHER APPARENT SIGNS OF DISTRESS. CALL LIGHT IS IN REACH.
--- NOTE | 2019-08-13 22:58 | NUR ---
PT LYING IN BED, AWAKE, NO APPARENT SIGNS OF DISTRESS. CALL LIGHT IS IN REACH.
--- NOTE | 2019-08-14 01:09 | NUR ---
0000 PT LYING IN BED, EYES CLOSED, APPEARS TO BE RESTING. BREATHING IS EVEN, UNLABORED. NO APPARENT SIGNS OF DISTRESS. CALL LIGHT IS IN REACH.
--- NOTE | 2019-08-14 04:13 | NUR ---
0200 PT LYING IN BED, EYES CLOSED, APPEARS TO BE RESTING. BREATHING IS EVEN, UNLABORED. NO APPARENT SIGNS OF DISTRESS. CALL LIGHT IS IN REACH.
--- NOTE | 2019-08-14 04:14 | NUR ---
PT HAS HX OF CVA, HAS GARBLED SPEECH BUT APPEARS TO BE AAO X 4. R UE/LE ARE FLACCID, L UE/LE ARE WEAK. VISIBLE SOB, AUDIBLE WHEEZING, LUNGS DIMINISHED, ON RA AT 93%. SCATTERED BRUISES AND SCABS ON UE'S. LAST BS WAS 156. SCD'S ON PT'S LEGS. EDEMA IN RLE 1-2+. 20G IV L FA SL-PATENT AND SITE WNL. PT TAKES PILLS WHOLE WITH WATER WITH NO PROBLEMS.
--- NOTE | 2019-08-14 04:42 | NUR ---
PT LYING IN BED, WAKE EASILY TO VERBAL STIMULI. NO APPARENT SIGNS OF DISTRESS. PT DENIES NEED FOR ANYTHING AT THIS TIME. CALL LIGHT IS IN REACH. NO OTHER CHANGES THIS SHIFT.
[2019-08-14 06:04] LABS: International Normalized Ratio 2.57; Prothrombin Time Results 26.1 Sec (9.7-11.5)
[2019-08-14 06:15] LABS: BASOPHILS ABSOLUTE AUTO 0.07 K/mm3 (0.00-0.23); BASOPHILS PERCENT AUTO 1 % (0-2); EOSINOPHILS ABSOLUTE AUTO 0.16 K/mm3 (0.00-0.68); EOSINOPHILS PERCENT AUTO 1 % (0-6); Hematocrit 35.6 % (37.0-53.0); Hemoglobin 11.6 g/dL (13.5-17.5); IMMATURE GRAN ABSOLUTE AUTO 0.16 K/mm3 (0.00-0.10); IMMATURE GRAN PERCENT AUTO 1 % (0-1); LYMPHOCYTES ABSOLUTE AUTO 1.59 K/mm3 (0.84-5.20); LYMPHOCYTES PERCENT AUTO 13 % (21-46); MONOCYTES ABSOLUTE AUTO 0.72 K/mm3 (0.16-1.47); MONOCYTES PERCENT AUTO 6 % (4-13); Mean Corpuscular HGB 31.7 pg (26.0-34.0); Mean Corpuscular HGB Conc 32.6 g/dL (31.5-36.5); Mean Corpuscular Volume 97 fL (80-100); Mean Platelet Volume 10.6 fL (9.1-12.4); NEUTROPHILS ABSOLUTE AUTO 9.34 K/mm3 (1.96-9.15); NEUTROPHILS PERCENT AUTO 78 % (41-73); Platelet Count 197 K/mm3 (150-400); RDW Coefficient Variation 13.5 % (11.7-14.2); RDW Standard Deviation 48.7 fL (35.1-46.3); Red Blood Cell Count 3.66 M/mm3 (4.30-5.90); White Blood Cell Count 12.04 K/mm3 (4.00-11.30)
[2019-08-14 06:25] LABS: Anion Gap 6 mmol/L (6-16); Blood Urea Nitrogen 16 mg/dL (8-24); Bun/Creatinine Ratio 16.4 (12.0-20.0); CO2, Blood 25 mmol/L (21-32); Calcium, Blood 7.9 mg/dL (8.5-10.1); Chloride, Blood 110 mmol/L (98-108); Creatinine, Blood 0.98 mg/dL (0.60-1.20); Glomerular Filtration Rate >60 (60-); Glucose, Blood 111 mg/dL (70-99); Potassium, Blood 3.8 mmol/L (3.5-5.5); Sodium, Blood 141 mmol/L (136-145)
--- NOTE | 2019-08-14 06:27 | NUR ---
PT LYING IN BED, EYES CLOSED, APPEARS TO BE RESTING. BREATHING IS EVEN, UNLABORED. NO APPARENT SIGNS OF DISTRESS. CALL LIGHT IS IN REACH. NO OTHER CHANGES THIS SHIFT.
--- NOTE | 2019-08-14 15:43 | NUR ---
BP 172/[address] Montgomery RE elevated bp above.
--- NOTE | 2019-08-14 17:45 | NUR ---
SHIFT SUMMARY A/O, PLEASANT GENTLEMAN. WORKED WITH OT/PT TODAY. CONTINUES TO BE EDEMATOUS. MEDICATED FOR BP 172/72 PER EMAR WITH GOOD RESULTS. UP FOR MEALS X 3. IRASEMA HOSE ON. NO OTHER CONCERNS.
--- NOTE | 2019-08-14 21:12 | NUR ---
2101 PT LYING IN BED, DENIES DISCOMFORT BUT HAS VISIBLE SOB AND AUDIBLE WHEEZES, LUNGS ARE DIMINISHED, ON RA AT 91%. HX CVA, IS FLACCID ON R UE/LE AND WEAK IN L UE/LE, ALSO HAS GARBLED SPEECH BUT APPEARS TO BE AAO X 4. SCATTERED BRUISES AND SCABS ON UE'S, EDEMA 1-2+ IN R LE. SCD'S ARE ON. BS TONIGHT IS 160. OCCASIONAL INCONTINANCE, WEARING ATTENDS, USES URINAL WITH HELP AND AT TIMES INDEPENDANTLY. IV IN L FA 20G SL, PATENT, SITE WNL. NO OTHER APPARENT SIGNS OF DISTRESS. ASSISTED BOX SPINNER IN CHANGING AND TURNING THE PT. CALL LIGHT IS IN REACH.
--- NOTE | 2019-08-15 00:28 | NUR ---
2200 PT LYING IN BED, EYES CLOSED, APPEARS TO BE RESTING. BREATHING IS EVEN, UNLABORED. NO APPARENT SIGNS OF DISTRESS. CALL LIGHT IS IN REACH.
--- NOTE | 2019-08-15 00:29 | NUR ---
PT LYING IN BED, WAKES EASILY TO VERBAL STIMULI. NO APPARENT SIGNS OF DISTRESS. PT DENIES DISCOMFORT OR NEED FOR ANYTHING AT THIS TIME. CALL LIGHT IS IN REACH.
--- NOTE | 2019-08-15 02:05 | NUR ---
PT LYING IN BED, EYES CLOSED, APPEARS TO BE RESTING. WAKES EASILY TO VERBAL STIMULI. NO APPARENT SIGNS OF DISTRESS. CALL LIGHT IS IN REACH.
--- NOTE | 2019-08-15 05:26 | NUR ---
PT LYING IN BED, EYES CLOSED, APPEARS TO BE RESTING. WAKES EASILY TO VERBAL STIMULI. NO APPARENT SIGNS OF DISTRESS. CHANGED AND TURNED PT. CALL LIGHT IS IN REACH. NO OTHER CHANGES THIS SHIFT.
--- NOTE | 2019-08-15 05:32 | NUR ---
PT DENIES DISCOMFORT BUT HAS VISIBLE SOB AND AUDIBLE WHEEZING, LUNGS DIMINISHED, RA AT 91%. HX CVA, R UE/LE IS FLACCID, L UE/LE IS WEAK, GARBLED SPEECH BUT IS AAO X 4. FEW SCATTERED SCABS AND BRUISES ON UE'S. EDEMA IN R LE 1-2+. SCD'S ON, BS AT HS WAS 160. OCCASIONAL INCONTINANCE, WEARING ATTENDS, BUT ALSO USES URINAL INDEPENDANTLY OR WITH HELP. IV L FA 20G SL.
[2019-08-15 05:43] LABS: International Normalized Ratio 2.35
--- NOTE | 2019-08-15 16:36 | NUR ---
SHIFT SUMMARY PT WOKE THIS AM FOR SHIFT REPORT. VERY PLEASANT AND SMILING. SPEECH IS MOSTLY GARBLED FROM HX OF STROKE, BUT ABLE TO MAKE OUT SOME WORDS OCCASSIONALLY. PT DOES TRY TO ASSIST WITH TURNING AND POSITIONING, THOUGH FLACCID ON R SIDE. PT UP TO CHAIR FOR A COUPLE OF HOURS THIS AM, ASSISTED BY P/T VIA PIVOT AND GAITBELT. 2P ASSIST BACK TO BED USING GAITBELT. PT UNABLE TO USE R LEG. USES URINAL IN BED ON HIS OWN MOST OF THE TIME. OCCASSIONAL INCONTINENCE IN ATTENDS. MEDS TAKEN WHOLE WITH H2O, W/O DIFFICULTY. NO C/O. REMAINS PLEASANT AND CHEERFUL. CALL LT IN REACH. ABLE TO USE.
[2019-08-16 05:47] LABS: International Normalized Ratio 2.19; Prothrombin Time Results 22.4 Sec (9.7-11.5)
--- NOTE | 2019-08-16 07:31 | NUR ---
Rn summary: Patient is alert and able to follw directions. His speech is garbled. He is very pleasant and smiles alot. Pt is able to turn self in bed with minimal assist. Pt has edema isa feet, prominent on top of feet, rt greater than left. Heel protector to rt heel. Heels elevated off bed. Wash cloth to rt hand to keep nails from digging into hand. Pt drinks water and takes pills with no difficulty. Pt uses urinal independantly, some spillage. Wears attends. Continues with IV ABX. IV is patent. Call light in reach and pt uses appropriately. Report to Mali RANDHAWA this am. Pt has done well, stable.
--- NOTE | 2019-08-16 12:08 | NUR ---
SHIFT SUMMARY NO ACUTE CHANGES TO PRESENT THIS SHIFT. PT STILL WAITING TO GO HOME. DAUGHTER FINALLY RETURNED CALL TO SESSIONS CLERK THIS AM. DAUGHTER TO COME IN AFTER WORK THIS AFTERNOON TO TAKE PT HOME. PT ABLE TO USE CALL LT, BUT SPEECH REMAINS GARBLED. ABLE TO NOD YES AND NO. CHEERFUL. NO C/O.
[2019-08-16] MEDS ORDERED: Augmentin 875-1 EACH PO (12:58)
[2019-08-16] MEDS ORDERED: ACET325 PO (12:58)
[2019-08-16] MEDS ORDERED: ALBU2.5V5 INH (12:58)
[2019-08-16] MEDS ORDERED: HUMALOG KW200 UNIT/1 (13:01)
[2019-08-16] MEDS ORDERED: Culturelle1 CAP PO (13:02)
--- NOTE | 2019-08-16 17:17 | NUR ---
PT'S SON TO RM EARLIER WITH PT'S CLOTHES AND PERSONAL W/C. PT'S SON ASSISTED PT IN GETTING DRESSED AND INTO PERSONAL W/C. TRANSPORT HERE TO TAKE PT TO DAUGHTERS HOUSE WHERE PT LIVES. PT'S SON AT SIDE DURING D/C, FOLLOWING.
== END 2019-08-16 17:12 | disposition home health service (06) | DRG 871 ==
LOC: ER 15:01 → MEDS 17:09 → ENPENDDIS 08-16 12:00 → MEDS 08-16 17:12
PROVIDERS: Internal Medicine; Physician Assistant; ADMIT Internal Medicine
DX: A41.1 Sepsis due to other specified staphylococcus (principal); J18.9 Pneumonia, unspecified organism; N30.01 Acute cystitis with hematuria; I48.20 Chronic atrial fibrillation, unspecified; E11.9 Type 2 diabetes mellitus without complications; E03.9 Hypothyroidism, unspecified; I69.320 Aphasia following cerebral infarction; R19.7 Diarrhea, unspecified; E87.6 Hypokalemia; I10 Essential (primary) hypertension; E78.5 Hyperlipidemia, unspecified; N40.0 Benign prostatic hyperplasia without lower urinary tract symptoms; K21.9 Gastro-esophageal reflux disease without esophagitis; F32.9 Major depressive disorder, single episode, unspecified; R09.02 Hypoxemia; Z86.718 Personal history of other venous thrombosis and embolism; Z87.891 Personal history of nicotine dependence; Z79.01 Long term (current) use of anticoagulants; Z79.84 Long term (current) use of oral hypoglycemic drugs; Z79.899 Other long term (current) drug therapy
CPT/HCPCS: 0097U; 0099U; 36415; 70450; 71046; 80048; 80053; 81001; 82947; 83605; 83735; 83880; 84145; 85025; 85610; 85730; 87040; 87070; 87077; 87086; 87186; 87205; 87804; 90686; 93005; 93010; 94640; 94760; 96361; 96374; 96375; 96376; 97110; 97162; 97166; 97530; 97535; 99285-25; G0480; J0360; J0456; J0690; J0696; J7030; J7050

== ENCOUNTER 2021-02-16 14:53 | Inpatient (IN) | payer OTHER, MEDICARE ==
[~2021-02-16] VITALS: Ht 185.4 cm; Wt 99.8 kg
[~2021-02-16 14:53] MED LIST changes: +ACET325 PO; +ALBU2.5V5 INH; +Augmentin 875-1 EACH PO; +Culturelle1 CAP PO; +GLIP2.5ER PO; +HUMALOG KW200 UNIT/1; +Ramipril10 MG PO
[2021-02-16 15:28] LABS: BASOPHILS ABSOLUTE AUTO 0.05 K/mm3 (0.00-0.23); BASOPHILS PERCENT AUTO 0 % (0-2); EOSINOPHILS ABSOLUTE AUTO 0.02 K/mm3 (0.00-0.68); EOSINOPHILS PERCENT AUTO 0 % (0-6); Hematocrit 45.8 % (37.0-53.0); Hemoglobin 15.8 g/dL (13.5-17.5); IMMATURE GRAN ABSOLUTE AUTO 0.04 K/mm3 (0.00-0.10); IMMATURE GRAN PERCENT AUTO 0 % (0-1); LYMPHOCYTES ABSOLUTE AUTO 3.02 K/mm3 (0.84-5.20); LYMPHOCYTES PERCENT AUTO 25 % (21-46); MONOCYTES ABSOLUTE AUTO 0.79 K/mm3 (0.16-1.47); MONOCYTES PERCENT AUTO 6 % (4-13); Mean Corpuscular HGB 31.5 pg (26.0-34.0); Mean Corpuscular HGB Conc 34.5 g/dL (31.5-36.5); Mean Corpuscular Volume 91 fL (80-100); Mean Platelet Volume 10.4 fL (9.1-12.4); NEUTROPHILS PERCENT AUTO 68 % (41-73); Platelet Count 150 K/mm3 (150-400); RDW Coefficient Variation 12.9 % (11.7-14.2); RDW Standard Deviation 43.2 fL (35.1-46.3); Red Blood Cell Count 5.01 M/mm3 (4.30-5.90); White Blood Cell Count 12.32 K/mm3 (4.00-11.30)
[2021-02-16 15:41] LABS: Alanine Aminotransfer (ALT/SGP 23 U/L (12-78); Albumin, Blood 3.2 g/dL (3.4-5.0); Albumin/Globulin Ratio 0.7 (0.8-1.8); Alk Phos 70 U/L (50-136); Anion Gap 6 mmol/L (6-16); Aspartate Aminotrans (AST/SGOT 18 U/L (12-37); Blood Urea Nitrogen 13 mg/dL (8-24); Bun/Creatinine Ratio 17.2 (12.0-20.0); CO2, Blood 23 mmol/L (21-32); Calcium, Blood 8.6 mg/dL (8.5-10.1); Chloride, Blood 108 mmol/L (98-108); Creatinine, Blood 0.76 mg/dL (0.60-1.20); Ethanol (Alcohol), Blood, Med <3 mg/dL; Globulin, Blood 4.7 g/dL (2.2-4.0); Glomerular Filtration Rate >60 (60-); Glucose, Blood 181 mg/dL (70-99); Potassium, Blood 3.8 mmol/L (3.5-5.5); Sodium, Blood 137 mmol/L (136-145); Total Protein, Blood 7.9 g/dL (6.4-8.2)
[2021-02-16 15:46] LABS: International Normalized Ratio 1.01; Prothrombin Time Results 10.9 Sec (9.7-11.5)
[2021-02-16 16:20] LABS: U Amphetamine Screen Not Detected; U Barbituate Screen Not Detected; U Benzodiazapine Screen Not Detected; U Buprenorphine Screen Not Detected; U Cannabinoids Screen Not Detected; U Cocaine Screen Not Detected; U Methadone Screen Not Detected; U Methamphetamine Screen Not Detected; U Opiates Screen Not Detected; U Oxycodone Screen Not Detected; U Phencyclidine Screen Not Detected; U Propoxyphene Screen Not Detected
[2021-02-16 17:48] LABS: CPK Creatine Kinase 187 U/L (39-308)
[2021-02-16 19:18] LABS: Source, Urine Catheter
[2021-02-16 19:30] LABS: Appearance, Urine Cloudy (Clear); Bilirubin, Urine Neg (Neg); Blood, Urine 3+ (Neg); Glucose Qualitative, Urine 2+ (Neg); Ketones, Urine 1+ (Neg); Leukocyte Esterase, Urine 3+ (Neg); Nitrite, Urine Neg (Neg); Protein, Urine 3+ (Neg); Specific Gravity, Urine 1.015 (1.003-1.022); Urobilinogen, Urine NORM (Normal)
[2021-02-16 19:34] LABS: Color, Urine Pale Yellow (P-Yellow)
[2021-02-16 19:37] LABS: Bacteria Many /hpf; Red Blood Cells, Urine 0-2 /hpf (0-2); Squamous Epithelial Cells Not Seen /hpf (Few); White Blood Cells, Urine TNTC /hpf (0-5)
[2021-02-16 23:04] LABS: International Normalized Ratio 1.01; Prothrombin Time Results 10.9 Sec (9.7-11.5)
[2021-02-17 04:02] LABS: PCO2 Arterial 31.1 mmHg (35-45)
[2021-02-17 05:58] LABS: BASOPHILS ABSOLUTE AUTO 0.04 K/mm3 (0.00-0.23); BASOPHILS PERCENT AUTO 0 % (0-2); EOSINOPHILS ABSOLUTE AUTO 0.07 K/mm3 (0.00-0.68); EOSINOPHILS PERCENT AUTO 1 % (0-6); Hematocrit 39.2 % (37.0-53.0); Hemoglobin 13.5 g/dL (13.5-17.5); IMMATURE GRAN ABSOLUTE AUTO 0.02 K/mm3 (0.00-0.10); IMMATURE GRAN PERCENT AUTO 0 % (0-1); LYMPHOCYTES ABSOLUTE AUTO 1.89 K/mm3 (0.84-5.20); LYMPHOCYTES PERCENT AUTO 18 % (21-46); MONOCYTES ABSOLUTE AUTO 0.83 K/mm3 (0.16-1.47); MONOCYTES PERCENT AUTO 8 % (4-13); Mean Corpuscular HGB Conc 34.4 g/dL (31.5-36.5); Mean Corpuscular Volume 93 fL (80-100); Mean Platelet Volume 10.6 fL (9.1-12.4); NEUTROPHILS ABSOLUTE AUTO 7.56 K/mm3 (1.96-9.15); NEUTROPHILS PERCENT AUTO 73 % (41-73); Platelet Count 131 K/mm3 (150-400); RDW Coefficient Variation 13.3 % (11.7-14.2); RDW Standard Deviation 45.4 fL (35.1-46.3); Red Blood Cell Count 4.22 M/mm3 (4.30-5.90); White Blood Cell Count 10.41 K/mm3 (4.00-11.30)
[2021-02-17 06:19] LABS: Alanine Aminotransfer (ALT/SGP 22 U/L (12-78); Albumin, Blood 2.5 g/dL (3.4-5.0); Albumin/Globulin Ratio 0.6 (0.8-1.8); Alk Phos 59 U/L (50-136); Anion Gap 5 mmol/L (6-16); Aspartate Aminotrans (AST/SGOT 24 U/L (12-37); Blood Urea Nitrogen 12 mg/dL (8-24); Bun/Creatinine Ratio 13.6 (12.0-20.0); CO2, Blood 25 mmol/L (21-32); Calcium, Blood 7.9 mg/dL (8.5-10.1); Chloride, Blood 111 mmol/L (98-108); Creatinine, Blood 0.88 mg/dL (0.60-1.20); Globulin, Blood 3.9 g/dL (2.2-4.0); Glomerular Filtration Rate >60 (60-); Glucose, Blood 163 mg/dL (70-99); Potassium, Blood 3.6 mmol/L (3.5-5.5); Sodium, Blood 141 mmol/L (136-145); Total Protein, Blood 6.4 g/dL (6.4-8.2); Troponin I 0.076 ng/mL (0.000-0.040)
--- NOTE | 2021-02-17 15:27 | NUR ---
King of Care: Care assumed at 1430hr. Patient arrived from ED via gurney, accompanied by ED nurse and RT. Patient intubated and sedated with propofol gtt at 45mcg/kg/min. Vent to AC-16/500/5/305, tolerating vent without difficulty, SpO2-96%. Pupils equal and reactive to light, with slight nystagmus noted. Positive for gag and cough reflex. Withdraws to painful stimuli, but not following any commands. Curtis patent and intact, draining dark barbara urine. Peripheral IV's x2 patent and intact, infusing without difficulty. Reported from ED nurse that family plans to arrive to hospital at 1700hr, with plan to transition to comfort measures. No s/s of pain or discomfort at this time. Will continue to monitor. Will await arrival of family to discuss patient's condition and plan of care.
--- NOTE | 2021-02-17 18:13 | NUR ---
Pt to icu on ventilator. Family in at 5pm to review prognosis and care. The feel after last event and his worsening condition he would not want life support. Plan is comfort and end of life care. Pt extubated and medicated. So clenching and twitching so ativan increased to reduce seizure risk. Copios secretions maintained airway until medicated. family at bedside.
--- NOTE | 2021-02-17 19:37 | NUR ---
Shift Summary: Patient's family arrived to unit at 1700hr. Discussed patient's condition "stable" with family. Family then states plan to change patient to comfort measures, informing staff that "my dad would not want any of this done to him", "he would rather just pass than go through all of this". Larissa Magaly to bedside with family, Larissa also received comfort care orders per Dr. Barnard. Patient then extubated by RT Ketty atmaris 1745hr. Patient then given prn morphine and ativan with good effect. Patient with s/s of pain or discomfort for remainder of shift. Family went home for the night at approx 1800hr, asked to be called with any significant changes. Bedside report given to NOC shift RN.
--- NOTE | 2021-02-18 06:13 | NUR ---
SHIFT SUMMARY ASSUMED CARE OF PT AT 1900. PT IS OBTUNDED. PT DOES NOT OBVE EYES TO ANY STIMULUS. LUNG SOUNDS ARE VERY COURSE AND MOIST. PT RESPIRATIONS ARE UNEVE AT TIMES AND PT SNORES AFTER BEING MOVED. THERE IS A RATTLE IN THE PT THROAT THAT IS TOO DEEP TO SUCTION. HEART SOUNDS DIFFICULT TO HEAR DUE TO LUNG SOUNDS. PT URINE HAS A GREEN TINT TO IT DUE TO PROFOLOL, THERE IS SEDIMENT IN THE URINE. PT WAS VERY WARM TO THE TOUCH, HOSPITALIST NOTIFIED AND GA TYLENOL ORDERED. BODY REMAINS RIDGED WHEN ROLLED IN BED.R SIDE MORE THAN LEFT. CALL LIGHT IN REACH, BED IN LOWEST POSITON.
--- NOTE | 2021-02-18 14:08 | NUR ---
NO ACUTE EVENTS THIS SHIFT. PT DOES NOT RESPOND TO VERBAL/PHYSICAL STIMULUS. DEEP SUCTIONING DONE T/O SHIFT, MEDICATED PER EMAR. PT'S DAUGHTER SHANNAN UPDATED ON CHANGE IN ROOMS. REPORT GIVEN TO CHAO RANDHAWA ON MEDICAL.
--- NOTE | 2021-02-18 14:15 | NUR ---
PT TRANSFERRED TO ROOM FROM ICU BY BED. UNRESPONSIVE ON ARRIVAL. POSITIONED FOR COMFORT.
--- NOTE | 2021-02-19 00:26 | NUR ---
RT DEEP SUCTIONED RT DEEP SUCTIONED PT CLEAR EXCESS SECREATIONS, THEY ALSO PLACED O2 FOR COMFORT. PT SEEMS TO BE RESTING EASIER AND APPEARS MORE COMFORTABLE.
--- NOTE | 2021-02-19 02:45 | NUR ---
PT CONTINUES TO BREATHE EASIER AFTER RT DEEP SUCTIONING, APPEARS COMFORTABLE. NO VERBAL OR NON VERBAL INDICATORS OF PAIN AT THIS TIME. SECREATIONS STILL PRESENT BUT MUCH IMPROVED AFTER SUCTIONING. SCAPOLAMINE PATCH REMAINS IN PLACE.
--- NOTE | 2021-02-19 04:09 | NUR ---
SHIFT SUMMARY PT WITH AIR HUNGER, INCREASED RESPIRATIONS, AND SECREATIONS AT THE BEGINNING OF THE SHIFT. MEDICATED PRN FOR COMFORT PER EMAR. YANKER SUCTION SET UP AT BEDISDE THIS SHIFT, AND PT DEEP SUCTIONED BY RT PRN. RESPIRATIONS HAVE BECOME MUCH MORE EVEN SINCE DEEP SUCTIONING, AND SECREATIONS ARE LESSENED. PT REMAINS OBTUNDED AND NONRESPONSIVE. PT APPEARS TO REST COMFORTABLY T/O MOST OF THE SHIFT, COMFORT ASSESSED T/O THE SHIFT. O2 IN PLACE PER RT FOR COMFORT. NO CALLS OR VISITS FROM FAMILY THIS SHIFT. ESQUIVEL IN PLACE WITH SOME OUTPUT, BUT MINIMAL. URINE IS VERY DARK ESSENCE IN COLOR. BED IN LOWEST POSITION, CALL LIGHT WITHIN REACH.
--- NOTE | 2021-02-19 12:16 | NUR ---
SHIFT SUMMARY DAUGHTER AT BEDSIDE. NO CHANGE SINCE ARRIVAL TO FLOOR. RESP RAPID AND BREATHING GURGLY. NO CHANGE IN BREATHING DESPITE ROXONAL AND ATIVAN. POSITIONED FOR COMFORT. WILL REPORT CONDITION TO ONCOMING SHIFT.
--- NOTE | 2021-02-19 17:50 | NUR ---
SHIFT SUMMARY- PT IS OBTUNDED. HE HAS BEEN RECIEVING ATROPINE FOR SECREATIONS. HE HAS BEEN COMFORTABLE THIS SHIFT AND HAS NOT REQUIRED PAIN MEDICATION. DAUGHTER AT BEDSIDE. PALATIVE CARE SAW THE PT AND SPOKE WITH THE DAUGHTER. HIS RESPIRATIONS HAVE BEEN EVEN AND UNLABORED. HIS ESQUIVEL IS PATIENT AND DRAINING.
--- NOTE | 2021-02-19 19:21 | NUR ---
RECEIVED REPORT FROM ALYSSA RN. PT ASLEEP IN BED. DAUGHTER AT BEDSIDE. RESP EVEN ON RA. APPEARS TO BE COMFORTABLE. WILL PROVIDE COMFORT CARE T/O SHIFT.
--- NOTE | 2021-02-20 04:23 | NUR ---
PT SUCTIONED BY RT FOR COMFORT.
--- NOTE | 2021-02-20 04:32 | NUR ---
4MG IV MORPHINE GIVEN TO PT FOR AIR HUNGER, PT'S RESP ARE LESS HARSH AT THIS TIME.
--- NOTE | 2021-02-20 04:50 | NUR ---
SHIFT SUMMARY: MEDICATED PT WITH ROXANOL 20MG SUBLINGUAL, AND ATROPINE DROPS T/O SHIFT. ATIVAN GIVEN ONCE WITH LITTLE EFFECTIVENESS. 4MG IV MORPHINE GIVEN TO HELP WITH AIR HUNGER, PT APPEARED TO REST AND BREATHE A LITTLE EASIER. WILL CONTINUE TO PROVIDE COMFORT CARE UNTIL SHIFT REPORT.
--- NOTE | 2021-02-20 19:19 | NUR ---
RECEIVED REPORT FROM EDIS BRADLEY. PT LYING IN BED. UNRESPONSIVE. DAUGHTER AND FAMILY AT BEDSIDE. RESP FAST AND HARD. DAUGHTER STATES WILL LEAVE AROUND 1999 NO NEEDS AT THIS TIME. ESQUIVEL IN PLACE. WILL PROVIDE COMFORT CARE T/O SHIFT.
--- NOTE | 2021-02-21 01:38 | NUR ---
SPOKE TO DAUGHTER, RUBEN IN REGARDS TO HER DAD'S PASSING. PAT WILL NOTIFY HER BROTHERS. FAMILY WILL BE COMING IN.
--- NOTE | 2021-02-21 02:15 | NUR ---
FAMILY AT BEDSIDE.
--- NOTE | 2021-02-21 03:26 | NUR ---
FAMILY LEFT AND TOOK PT'S BIBLE. [employer] WAS CALLED FOR AUTOMOTIVE PARTS COORDINATOR.
== END 2021-02-20 23:53 | DRG 951 ==
LOC: ER 14:53 → MEDS 21:18 → ERHOLD 21:18 → ICUE 02-17 14:19 → MEDS 02-17 14:30 → ICUE 02-17 17:45 → MEDS 02-18 13:45
PROVIDERS: Student in an Organized Health Care Education/Training Program; ADMIT Internal Medicine
PROC: 0BH18EZ Insertion of Endotracheal Airway into Trachea, Via Natural or Artificial Opening Endoscopic (ICD-10-PCS; principal; 2021-02-16)
PROC: 5A1945Z Respiratory Ventilation, 24-96 Consecutive Hours (ICD-10-PCS; 2021-02-16)
DX: Z51.5 Encounter for palliative care (principal); I63.9 Cerebral infarction, unspecified; J69.0 Pneumonitis due to inhalation of food and vomit; J96.01 Acute respiratory failure with hypoxia; N39.0 Urinary tract infection, site not specified; I69.351 Hemiplegia and hemiparesis following cerebral infarction affecting right dominant side; Z66 Do not resuscitate; R77.8 Other specified abnormalities of plasma proteins; I10 Essential (primary) hypertension; E11.9 Type 2 diabetes mellitus without complications; G40.901 Epilepsy, unspecified, not intractable, with status epilepticus; K21.9 Gastro-esophageal reflux disease without esophagitis; N40.0 Benign prostatic hyperplasia without lower urinary tract symptoms; E86.0 Dehydration; F32.9 Major depressive disorder, single episode, unspecified; E03.9 Hypothyroidism, unspecified; Z88.8 Allergy status to other drugs, medicaments and biological substances; Z79.01 Long term (current) use of anticoagulants; Z79.899 Other long term (current) drug therapy; Z79.4 Long term (current) use of insulin; Z87.442 Personal history of urinary calculi; Z87.891 Personal history of nicotine dependence; Z85.828 Personal history of other malignant neoplasm of skin
CPT/HCPCS: 31720; 36600; 51702; 70450; 70496; 70498; 71045; 80053; 81001; 82550; 82803; 82947; 84484; 85025; 85610; 85730; 87077; 87086; 87186; 93005; 93010; 94003; 94760; 96365; 96367; 96372; 96375; 96376; 99291-25; A9270; G0480; J0696; J1650; J1815; J1953; J2060; J2270; J2704; J3010; J7030; Q9967